=== PATIENT | male | born 1990 | race Two or more races ===

== ENCOUNTER 2019-07-22 22:11 | Inpatient (IN) ==
[2019-07-22 22:35] VITALS: BMI 32.4
[2019-07-22 23:32] LABS: HEMOGLOBIN 16.7 g/dL (13.5-18.0); MEAN CORPUSCULAR HEMOGLOBIN 29.7 pg (27.0-34.0); MONOCYTES # (AUTO) 0.4 x10^3/uL (0.3-0.8); WHITE BLOOD COUNT 6.6 X10^3/uL (3.6-10.0)
[2019-07-22] MEDS ORDERED: ROCEPHIN VIAL 1 GRAM 1 G in NS 100 ML IV + SPIKE MINIBAG* 100 ML IV ONE (23:36)
[2019-07-22] MEDS ORDERED: VIBRAMYCIN 100 MG in D5W 250 ML IV 250 ML IV ONE (23:36)
[2019-07-22 23:39] LABS: ALANINE AMINOTRANSFERASE 64 Units/L (12-78); ALKALINE PHOSPHATASE 79 Units/L (46-116); ASPARTATE AMINO TRANSFERASE 38 Units/L (15-37); BASOPHILS % (AUTO) 0.4 % (0.2-1.0); BLOOD UREA NITROGEN 15 mg/dL (7-18); CALCIUM 8.9 mg/dL (8.5-10.1); CARBON DIOXIDE 26.2 mmol/L (21-32); CHLORIDE 100 mmol/L (98-107); CREATININE 1.35 mg/dL (0.70-1.30); HEMATOCRIT 47.8 % (42.0-54.0); LYMPHOCYTES # (AUTO) 0.4 X10^3/uL (1.3-2.9); LYMPHOCYTES % (AUTO) 5.4 % (21.0-51.0); MEAN CORPUSCULAR VOLUME 84.9 fL (80.0-100.0); MEAN PLATELET VOLUME 10.3 fL (7.4-11.0); MONOCYTES % (AUTO) 6.1 % (0.0-13.0); NEUTROPHILS # (AUTO) 5.8 x10^3/uL (2.2-4.8); NEUTROPHILS % (AUTO) 88.1 % (42.0-75.0); PLATELET COUNT 163 X10^3/uL (150.0-450.0); RED BLOOD COUNT 5.63 X10^6/uL (4.7-6.0); RED CELL DISTRIBUTION WIDTH 13.9 % (11.6-16.5); SODIUM 139 mmol/L (136-145); TOTAL PROTEIN 8.9 g/dL (6.4-8.2); eGFR NON BLACK RACES > 60 (>60)
[2019-07-22] MEDS ORDERED: NS 1000 ML 1,000 ML ONE (23:45)
--- NOTE | 2019-07-22 23:53 | DR.ABDMALE ---
HPI Time seen Time Seen by Provider: 07/22/19 22:47 PCP Primary Care Physician: NFD Complaint Chief Complaint Doctors Comments: A 28 y/o male presents with c/o fever, muscle aches, epigastric pain for the preceding 5 days. He had COVID testing done 2 days ago. He also has SOB but no cough. He has nausea also. 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 UPON ASKING PT HE STATES HE IS SOB. SATS NOTED BETWEEN 88-89, PT TAKEN TO ROOM MD INFORMED AND PLACED ON NC Self Treatment fo Chief Complaint: TYLENOL 4 PM COVID-19 Coronavirus risk:travel/contact w/high risk person: No Has patient experienced Coronavirus symptoms: Yes Coronavirus symptoms experienced: Fever and Shortness of Breath Reviewed Nurses Notes Review: Yes Mode of arrival Mode of Arrival: Ambulatory Timing Onset of Chief Complaint: 07/22/19 Came on: Gradually Duration Duration: Intermittent How lon Location Location: Epigastric Severity Severity: Mild and Moderate Quality Quality: Aching Context History of: None Modifying factors Worsening Factors: Nothing Improving Factors: Nothing Associated signs and symptoms Associated Signs and Symptoms: Nausea PMH PMH Past Medical History: No Past Surgical History: No Surgical History: No History Family History History of Family Medical Conditions: No Social History Does patient currently use any type of tobacco product: No Have you used tobacco products in the last 12 months: No Type of Tobacco Use: None Does any household member use tobacco: No Alcohol Use: None Do you use any recreational Drugs:: No Lives With: Family Lives Where: Home Infectious screening In the last 2 months have you had wt loss of >10#?: NO Have you had fever, night sweats or hemotysis?: No Have you traveled outside the country in the last 6 months?: No Isolation: Standard ROS Review of Systems Constitutional: Fever Eyes: No Symptoms Reported ENTM: No Symptoms Reported Respiratoy: Short of Breath Cardiovascular: No Symptoms Reported Gastrointestinal/Abdominal: Abdominal Pain (epigastric) and Nausea Genitourinary: No Symptoms Reported Neurological: No Symptoms Reported Musculoskeletal: Other (Muscle aches) Integumentary: No Symptoms Reported Hematologic/Lymphatic: No Symptoms Reported Endocrine: No Symptoms Reported Psychiatric: No Symptoms Reported All Other Systems: Reviewed and Negative PE Vital Signs Vital Signs: Temp Pulse Pulse Resp BP BP Pulse Ox 07/22/19 23:00 98 H 123/63 90 L 07/22/19 22:29 97.9 F 98 H 18 107/55 88 L 07/20/19 15:43 121/79 General Limitations: No Limitations General Appearance: Alert and In No Apparent Distress Head Head Exam: Normal Inspection, Atraumatic and Normocephalic Eyes Eye exam: Normal Appearance and EOMI ENT ENT Exam: Normal Exam, Normal Oropharynx, Normal External Ear Exam and Mucous Membranes Moist Neck Neck Exam: Normal Inspection, Full ROM and Trachea Midline Chest Chest Inspection: Normal Inspection and Symmetric Chest Wall Rise Respiratory Respiratory Exam: Normal Lung Sounds Bilat Cardiovascular Cardiovascular Exam: Regular Rate, Normal Rhythm, Normal Heart Sounds, +S1 and +S2 Abdominal Exam Abdominal Exam: Normal Inspection, Normal Bowel Sounds and Soft Rectal Rectal Exam: Deferred Back Back Exam: Normal Inspection and Full ROM Extremeties Extremities Exam: Normal Inspection and Full ROM Exam: Male: Deferred Neurologic Neurological Exam: Alert and Oriented X3 Psychiatric Psychiatric Exam: Normal Affect and Normal Mood Skin Skin Exam: Dry and Normal Color COURSE Reevaluation 1st: Improved Education/Counseling Education/Counseling: Patient, Education and Counseling Educated On: Treatment, Diagnosis, Prognosis and Needs for Follow Up ROR Labs Reviewed Laboratory Results Reviewed?: Yes Result Diagrams: 07/22/19 23:19 07/22/19 23:19 Laboratory: WBC 6.6 X10^3/uL (3.6-10.0) 07/22/19 23:19 RBC 5.63 X10^6/uL (4.7-6.0) 07/22/19 23:19 Hgb 16.7 g/dL (13.5-18.0) 07/22/19 23:19 Hct 47.8 % (42.0-54.0) 07/22/19 23:19 MCV 84.9 fL (80.0-100.0) 07/22/19 23:19 MCH 29.7 pg (27.0-34.0) 07/22/19 23:19 MCHC 35.0 g/dL (33.0-35.0) 07/22/19 23:19 RDW 13.9 % (11.6-16.5) 07/22/19 23:19 Plt Count 163 X10^3/uL (150.0-450.0) 07/22/19 23:19 MPV 10.3 fL (7.4-11.0) 07/22/19 23:19 Neut % (Auto) 88.1 % (42.0-75.0) H 07/22/19 23:19 Lymph % (Auto) 5.4 % (21.0-51.0) L 07/22/19 23:19 [place] % (Auto) 6.1 % (0.0-13.0) 07/22/19 23:19 Eos % (Auto) 0.0 % (0.9-2.9) L 07/22/19 23:19 Baso % (Auto) 0.4 % (0.2-1.0) 07/22/19 23:19 Neut # (Auto) 5.8 x10^3/uL (2.2-4.8) H 07/22/19 23:19 Lymph # (Auto) 0.4 X10^3/uL (1.3-2.9) L 07/22/19 23:19 [place] # (Auto) 0.4 x10^3/uL (0.3-0.8) 07/22/19 23:19 Eos # (Auto) 0.0 x10^3/uL (0.0-0.2) 07/22/19 23:19 Baso # (Auto) 0.0 X10^3/uL (0.0-0.1) 07/22/19 23:19 Absolute Nucleated RBC 0.0 /100WBC 07/22/19 23:19 Sodium 139 mmol/L (136-145) 07/22/19 23:19 Corrected Sodium TNP 07/22/19 23:19 Potassium 3.5 mmol/L (3.5-5.1) 07/22/19 23:19 Chloride 100 mmol/L (98-107) 07/22/19 23:19 Carbon Dioxide 26.2 mmol/L (21-32) 07/22/19 23:19 BUN 15 mg/dL (7-18) 07/22/19 23:19 Creatinine 1.35 mg/dL (0.70-1.30) H 07/22/19 23:19 Est GFR (MDRD) Af Amer > 60 (>60) 07/22/19 23:19 Est GFR (MDRD) Non-Af > 60 (>60) 07/22/19 23:19 Glucose 97 mg/dL (65-99) 07/22/19 23:19 Calcium 8.9 mg/dL (8.5-10.1) 07/22/19 23:19 Corrected Calcium TNP 07/22/19 23:19 Total Bilirubin 0.70 mg/dL (0.2-1.0) 07/22/19 23:19 AST 38 Units/L (15-37) H 07/22/19 23:19 ALT 64 Units/L (12-78) 07/22/19 23:19 Alkaline Phosphatase 79 Units/L (46-116) 07/22/19 23:19 Total Protein 8.9 g/dL (6.4-8.2) H 07/22/19 23:19 Albumin 4.0 g/dL (3.4-5.0) 07/22/19 23:19 Globulin 4.9 g/dL (2.5-4.5) H 07/22/19 23:19 Albumin/Globulin Ratio 0.8 Ratio (1.1-2.1) L 07/22/19 23:19 XRAY XRAY Interpreted by: Self X-ray Results: CXR: RLL infiltrates, no cardiomegaly. Opioid Opioid Risk Tool Age (Andrzej box if 16-45): Yes History of Preadolescent Sexual Abuse: No Total: 1 Total Score Risk Category: Low Risk Copyright: [facility] predicting aberrant behaviors Diagnosis Discharge Problem: Acute interstitial pneumonia ADDITIONAL NOTES Additional Notes Additional Notes: STUDY: CHEST, 1 VIEW COMPARISON: None HISTORY: sob, fever, possible covid-19 FINDINGS: Multifocal alveolar airspace disease is seen throughout the right and left lung which also demonstrates increased interstitial lung markings in the bilateral mid and lower lung zones in a symmetric distribution from the ekaterina to the subpleural surface. This is worrisome for infectious process which may include bacterial lobar pneumonia with possible superimposed viral pattern interstitial pneumonia. Heart size is normal. Mediastinum is unremarkable. Trachea is midline. No pleural effusion or pneumothorax is seen. IMPRESSION: 1. Findings suggest multifocal lobar pneumonia with findings that may represent superimposed viral pattern interstitial pneumonia. Correlation with laboratory viral testing may be helpful and obtained if clinically indicated. Electronically signed by: Ezra Ieyr (July 22, 2019 23:58:26)
[2019-07-22] MEDS ORDERED: NS 100 ML IV + SPIKE MINIBAG* 200 ML IV ONE (23:57)
[2019-07-22] MEDS ORDERED: ROCEPHIN VIAL 1 GRAM ONE (23:58)
--- NOTE | 2019-07-23 | RAD ---
STUDY: CHEST, 1 VIEWCOMPARISON: NoneHISTORY: sob, fever, possible covid-19FINDINGS:Multifocal alveolar airspace disease is seen throughout the right and left lung which also demonstrates increased interstitial lung markings in the bilateral mid and lower lung zones in a symmetric distribution from the ekaterina to the subpleural surface. This is worrisome for infectious process which may include bacterial lobar pneumonia with possible superimposed viral pattern interstitial pneumonia.Heart size is normal. Mediastinum is unremarkable. Trachea is midline. No pleural effusion or pneumothorax is seen.IMPRESSION:1. Findings suggest multifocal lobar pneumonia with findings that may represent superimposed viral pattern interstitial pneumonia. Correlation with laboratory viral testing may be helpful and obtained if clinically indicated.Electronically signed by: Ezra Iyer (July 22, 2019 23:58:26)
[2019-07-23] MEDS ORDERED: TYLENOL 325 MG TAB PO PRN (00:56)
[2019-07-23] MEDS ORDERED: ASCORBIC ACID INJ MULTI-DOSE VIAL IM SCH (01:20)
[2019-07-23 01:23] LABS: ABG BASE EXCESS -2.7 mmol/L (-2.0-2.0); ABG HCO3 19.7 mmol/L (22-26)
[2019-07-23] MEDS: NS 1000 ML 1,000 ML IV SCH (02:22)
[2019-07-23 05:28] LABS: BASOPHILS % (AUTO) 0.2 % (0.2-1.0); HEMATOCRIT 42.7 % (42.0-54.0); LYMPHOCYTES # (AUTO) 0.8 X10^3/uL (1.3-2.9); LYMPHOCYTES % (AUTO) 13.2 % (21.0-51.0); MEAN CORPUSCULAR HEMOGLOBIN 29.3 pg (27.0-34.0); MEAN CORPUSCULAR HGB CONC 34.5 g/dL (33.0-35.0); MEAN CORPUSCULAR VOLUME 84.8 fL (80.0-100.0); MEAN PLATELET VOLUME 10.1 fL (7.4-11.0); MONOCYTES # (AUTO) 0.5 x10^3/uL (0.3-0.8); MONOCYTES % (AUTO) 7.9 % (0.0-13.0); NEUTROPHILS # (AUTO) 4.8 x10^3/uL (2.2-4.8); NEUTROPHILS % (AUTO) 78.7 % (42.0-75.0); PLATELET COUNT 158 X10^3/uL (150.0-450.0); RED BLOOD COUNT 5.03 X10^6/uL (4.7-6.0); RED CELL DISTRIBUTION WIDTH 14.1 % (11.6-16.5); WHITE BLOOD COUNT 6.1 X10^3/uL (3.6-10.0)
[2019-07-23 05:40] LABS: ALANINE AMINOTRANSFERASE 55 Units/L (12-78); ALBUMIN 3.3 g/dL (3.4-5.0); ALKALINE PHOSPHATASE 64 Units/L (46-116); ASPARTATE AMINO TRANSFERASE 37 Units/L (15-37); BLOOD UREA NITROGEN 14 mg/dL (7-18); CARBON DIOXIDE 24.4 mmol/L (21-32); CHLORIDE 103 mmol/L (98-107); COR CA(FOR HYPOALB) 8.6 mg/dL (8.5-10.1); CREATININE 1.14 mg/dL (0.70-1.30); SODIUM 139 mmol/L (136-145); TOTAL PROTEIN 7.5 g/dL (6.4-8.2); eGFR NON BLACK RACES > 60 (>60)
[2019-07-23 05:43] LABS: HEMOGLOBIN 14.7 g/dL (13.5-18.0)
[2019-07-23] MEDS: PLAQUENIL PO SCH ×3 (06:04→21:15)
[2019-07-23] MEDS ORDERED: CORTEF ONE (08:35)
[2019-07-23] MEDS: NS 100 ML IV 100 ML with ASCORBIC ACID INJ MULTI-DOSE VIAL 1,500 MG IV SCH ×6 (08:50→21:15)
[2019-07-23] MEDS: THIAMINE HCL INJ IM SCH ×2 (08:50→21:15)
[2019-07-23] MEDS: ZINC SULFATE PO SCH ×2 (08:50→21:15)
[2019-07-23] MEDS: CORTEF PO SCH ×4 (08:50→21:15)
[2019-07-23] MEDS ORDERED: TYLENOL 500 MG TAB EXTRA STRENGTH PO SCH (13:00)
[2019-07-23] MEDS: LOVENOX INJ 40 MG SYR SC SCH (13:05)
[2019-07-23] MEDS: VITAMIN D (1.25MG) PO SCH ×2 (16:43→17:30)
[2019-07-23] MEDS: TYLENOL 500 MG TAB EXTRA STRENGTH PO PRN (20:30)
[2019-07-24] MEDS ORDERED: ROBITUSSIN DM ONE (00:55)
[2019-07-24] MEDS: ROBITUSSIN DM PO PRN ×2 (01:01→14:07)
[2019-07-24] MEDS: TYLENOL 500 MG TAB EXTRA STRENGTH PO PRN ×2 (02:08→16:00)
[2019-07-24] MEDS: NS 100 ML IV 100 ML with ASCORBIC ACID INJ MULTI-DOSE VIAL 1,500 MG IV SCH ×8 (03:27→20:20)
[2019-07-24] MEDS ORDERED: MOTRIN TAB 800 MG PO ONE ×3 (03:31→17:17)
[2019-07-24 05:20] LABS: BASOPHILS # (AUTO) 0.1 X10^3/uL (0.0-0.1); BASOPHILS % (AUTO) 0.6 % (0.2-1.0); HEMATOCRIT 43.5 % (42.0-54.0); HEMOGLOBIN 15.1 g/dL (13.5-18.0); LYMPHOCYTES # (AUTO) 0.8 X10^3/uL (1.3-2.9); LYMPHOCYTES % (AUTO) 7.4 % (21.0-51.0); MEAN CORPUSCULAR HEMOGLOBIN 29.2 pg (27.0-34.0); MEAN CORPUSCULAR HGB CONC 34.8 g/dL (33.0-35.0); MEAN PLATELET VOLUME 9.9 fL (7.4-11.0); MONOCYTES # (AUTO) 0.5 x10^3/uL (0.3-0.8); MONOCYTES % (AUTO) 4.7 % (0.0-13.0); NEUTROPHILS # (AUTO) 9.3 x10^3/uL (2.2-4.8); NEUTROPHILS % (AUTO) 87.3 % (42.0-75.0); PLATELET COUNT 157 X10^3/uL (150.0-450.0); RED BLOOD COUNT 5.18 X10^6/uL (4.7-6.0); RED CELL DISTRIBUTION WIDTH 13.8 % (11.6-16.5); WHITE BLOOD COUNT 10.7 X10^3/uL (3.6-10.0)
[2019-07-24 05:38] LABS: ALANINE AMINOTRANSFERASE 47 Units/L (12-78); ALBUMIN 3.2 g/dL (3.4-5.0); ALKALINE PHOSPHATASE 64 Units/L (46-116); ASPARTATE AMINO TRANSFERASE 35 Units/L (15-37); BLOOD UREA NITROGEN 9 mg/dL (7-18); CALCIUM 8.3 mg/dL (8.5-10.1); CARBON DIOXIDE 28.2 mmol/L (21-32); CHLORIDE 103 mmol/L (98-107); COR CA(FOR HYPOALB) 8.9 mg/dL (8.5-10.1); CREATININE 1.01 mg/dL (0.70-1.30); SODIUM 139 mmol/L (136-145); TOTAL PROTEIN 7.5 g/dL (6.4-8.2); eGFR NON BLACK RACES > 60 (>60)
[2019-07-24] MEDS: PLAQUENIL PO SCH ×3 (06:12→21:40)
--- NOTE | 2019-07-24 06:23 | RAD ---
HISTORYFollow-up shortness of breath, COVID-19STUDYCHEST, 1 [id number]/13/2020FINDINGSThe heart is enlarged. No congestive heart failure is noted. The lungs are somewhat hypoinflated. Subtle left perihilar infiltrate is present subsegmental atelectasis is present in the right lung base and right perihilar region. No pleural effusions are identified.IMPRESSIONMild cardiomegaly without congestive heart failureHypo inflationLeft perihilar infiltrateSubsegmental atelectasis on the right as describedElectronically signed by: CATARINA MANCUSO (July 24, 2019 06:21:23)
[2019-07-24] MEDS: ZINC SULFATE PO SCH ×2 (08:24→20:20)
[2019-07-24] MEDS: CORTEF PO SCH ×4 (08:24→20:20)
[2019-07-24] MEDS: LOVENOX INJ 40 MG SYR SC SCH (08:25)
[2019-07-24] MEDS: THIAMINE HCL INJ IM SCH ×2 (08:26→20:20)
[2019-07-24] MEDS ORDERED: ZOFRAN INJ 4 MG VIAL ONE (13:58)
[2019-07-24] MEDS ORDERED: ZOFRAN INJ 4 MG VIAL IVP PRN (14:08)
[2019-07-24] MEDS: MOTRIN TAB 800 MG PO PRN (17:24)
[2019-07-25] MEDS: NS 100 ML IV 100 ML with ASCORBIC ACID INJ MULTI-DOSE VIAL 1,500 MG IV SCH ×8 (03:18→20:10)
[2019-07-25] MEDS: TYLENOL 500 MG TAB EXTRA STRENGTH PO PRN ×2 (03:19→20:10)
[2019-07-25] MEDS: ROBITUSSIN DM PO PRN ×3 (03:19→17:34)
[2019-07-25] MEDS: MOTRIN TAB 800 MG PO PRN ×2 (05:40→17:33)
[2019-07-25] MEDS: PLAQUENIL PO SCH ×3 (05:51→21:32)
[2019-07-25 06:09] LABS: BASOPHILS % (AUTO) 0.4 % (0.2-1.0); HEMATOCRIT 42.2 % (42.0-54.0); HEMOGLOBIN 14.5 g/dL (13.5-18.0); LYMPHOCYTES # (AUTO) 1.2 X10^3/uL (1.3-2.9); LYMPHOCYTES % (AUTO) 10.6 % (21.0-51.0); MEAN CORPUSCULAR HEMOGLOBIN 28.8 pg (27.0-34.0); MEAN CORPUSCULAR HGB CONC 34.4 g/dL (33.0-35.0); MEAN CORPUSCULAR VOLUME 83.8 fL (80.0-100.0); MEAN PLATELET VOLUME 10.5 fL (7.4-11.0); MONOCYTES # (AUTO) 0.5 x10^3/uL (0.3-0.8); MONOCYTES % (AUTO) 4.5 % (0.0-13.0); NEUTROPHILS # (AUTO) 9.5 x10^3/uL (2.2-4.8); NEUTROPHILS % (AUTO) 84.5 % (42.0-75.0); PLATELET COUNT 178 X10^3/uL (150.0-450.0); RED BLOOD COUNT 5.04 X10^6/uL (4.7-6.0); RED CELL DISTRIBUTION WIDTH 13.7 % (11.6-16.5); WHITE BLOOD COUNT 11.3 X10^3/uL (3.6-10.0)
[2019-07-25] MEDS: NS 1000 ML 1,000 ML IV SCH ×2 (06:23→07:10)
[2019-07-25 06:24] LABS: ALANINE AMINOTRANSFERASE 38 Units/L (12-78); ALBUMIN 2.8 g/dL (3.4-5.0); ALKALINE PHOSPHATASE 74 Units/L (46-116); ASPARTATE AMINO TRANSFERASE 31 Units/L (15-37); BLOOD UREA NITROGEN 10 mg/dL (7-18); CALCIUM 8.6 mg/dL (8.5-10.1); CARBON DIOXIDE 25.2 mmol/L (21-32); CHLORIDE 103 mmol/L (98-107); COR CA(FOR HYPOALB) 9.6 mg/dL (8.5-10.1); CREATININE 0.86 mg/dL (0.70-1.30); SODIUM 139 mmol/L (136-145); TOTAL PROTEIN 7.3 g/dL (6.4-8.2); eGFR NON BLACK RACES > 60 (>60)
--- NOTE | 2019-07-25 08:03 | RAD ---
HISTORYCough SOBSTUDYPortable AP [id number]/2020FINDINGSContinued normal heart size and configuration. Slight improvement in pulmonary volumes. Persistent areas of bibasal infiltrates/atelectasis. No new consolidation, edema or pneumothorax seen.IMPRESSIONMild bibasal areas of infiltrate or subsegmental atelectasis. Consider ing technical differences there is little change since prior.Electronically signed by: BRYN BOO (July 25, 2019 08:02:08)
[2019-07-25] MEDS: VITAMIN A PO SCH (09:10)
[2019-07-25] MEDS: VITAMIN D3 25 mcg (1,000 UNITS) PO SCH (09:10)
[2019-07-25] MEDS: LOVENOX INJ 40 MG SYR SC SCH (09:10)
[2019-07-25] MEDS: ZINC SULFATE PO SCH ×2 (09:10→20:10)
[2019-07-25] MEDS: THIAMINE HCL INJ IM SCH ×2 (10:25→20:10)
--- NOTE | 2019-07-25 10:45 | PCM.PROG ---
Progress Note Progress Note for Day of Date of Exam: 07/25/19 Subjective Subjective: Patient seen at bedside, [place] counsel line used for communication. He reports chest tightness and labored breathing with exertion. He was put on RA this morning, sats remained at 91% and he reported some shortness of breath. His RR did increase to 40s. He reports dry cough. Patient placed back on 2L, breathing looks better and sats. 96%. Denies fever or chills, reports poor appetite, Denies N/V/D or abdominal pain. Tmax 101.2 last night, currently afebrile. He has been getting Tylenol and Ibuprofen. CXR: bibasilar infiltrates/atelectasis, similar to prior Labs: WBC 11.3, K: 3.4 M.0 Plan: place back on 2L, monitor resp status, will evaluate on RA again this evening. Continue current treatment with Plaquenil, Vit C, thiamine and Zinc. Will DC hydrocortisone. Add albuterol inhaler QID, incentive spirometer. Monitor AM labs. Will get a baseline EKG due to being on plaquenil. Past Medical Family Social History Past Med/Fam/Surg Hx: No changes since H&P Allergies: Allergies No Known Drug Allergies Allergy (Verified 07/20/19 13:52) Review of Systems ROS: No change since H&P Vital Signs and I&O's Vital Signs: Temperature 98.9 F Pulse Rate [Left] 79 Pulse Rate 98 Respiratory Rate 39 Blood Pressure [Left Arm] 128/70 Blood Pressure 107/55 O2 Sat by Pulse Oximetry 94 Intake and Output: Intake & Output 07/22/19 07/23/19 07/24/19 07/25/19 23:59 23:59 23:59 23:59 Intake Total 1201 / 1201 1968 / 1968 479 / 479 Output Total 2099 / 2099 1600 / 1600 325 / 325 Balance -899 / -899 369 / 369 154 / 154 Physical Exam Oriented: Normal Ear: Normal Nose: Normal Respiratory: Generalized and Diminished Cardiovascular: Normal Auscultation: Bowel Sounds: Normal Tenderness: Normal Skin: Normal Musculoskeletal: Normal Psychiatric: Normal Mood Description: Calm Speech Pattern: Clear and Appropriate Laboratory and Diagnostics Result Diagrams: 07/25/19 05:20 07/25/19 05: Labs: 07/22/19 23:52 Blood Blood Culture - Preliminary 07/22/19 23:19 Blood Blood Culture - Preliminary Laboratory WBC 11.3 X10^3/uL (3.6-10.0) H 07/25/19 05:20 RBC 5.04 X10^6/uL (4.7-6.0) 07/25/19 05:20 Hgb 14.5 g/dL (13.5-18.0) 07/25/19 05:20 Hct 42.2 % (42.0-54.0) 07/25/19 05:20 MCV 83.8 fL (80.0-100.0) 07/25/19 05:20 MCH 28.8 pg (27.0-34.0) 07/25/19 05:20 MCHC 34.4 g/dL (33.0-35.0) 07/25/19 05:20 RDW 13.7 % (11.6-16.5) 07/25/19 05:20 Plt Count 178 X10^3/uL (150.0-450.0) 07/25/19 05:20 MPV 10.5 fL (7.4-11.0) 07/25/19 05:20 Neut % (Auto) 84.5 % (42.0-75.0) H 07/25/19 05:20 Lymph % (Auto) 10.6 % (21.0-51.0) L 07/25/19 05:20 [place] % (Auto) 4.5 % (0.0-13.0) 07/25/19 05:20 Eos % (Auto) 0.0 % (0.9-2.9) L 07/25/19 05:20 Baso % (Auto) 0.4 % (0.2-1.0) 07/25/19 05:20 Neut # (Auto) 9.5 x10^3/uL (2.2-4.8) H 07/25/19 05:20 Lymph # (Auto) 1.2 X10^3/uL (1.3-2.9) L 07/25/19 05:20 [place] # (Auto) 0.5 x10^3/uL (0.3-0.8) 07/25/19 05:20 Eos # (Auto) 0.0 x10^3/uL (0.0-0.2) 07/25/19 05:20 Baso # (Auto) 0.0 X10^3/uL (0.0-0.1) 07/25/19 05:20 Absolute Nucleated RBC 0.0 /100WBC 07/25/19 05:20 Sample Site [facility] 07/23/19 01:18 ABG pH 7.470 (7.35-7.45) H 07/23/19 01:18 ABG pCO2 27.0 mmHg (35.0-45.0) L 07/23/19 01:18 ABG pO2 99.0 mmHg (80.0-100.0) 07/23/19 01:18 ABG HCO3 19.7 mmol/L (22-26) L 07/23/19 01:18 ABG O2 Saturation 98.0 % (90-100) 07/23/19 01:18 ABG Base Excess -2.7 mmol/L (-2.0-2.0) L 07/23/19 01:18 Kendall Test Na 07/23/19 01:18 A-a Gradient 17.0 mmHg 07/23/19 01:18 FiO2 21.0 07/23/19 01:18 Blood Gas Comments [facility] 07/23/19 01:18 Sodium 139 mmol/L (136-145) 07/25/19 05:20 Corrected Sodium TNP 07/25/19 05:20 Potassium 3.4 mmol/L (3.5-5.1) L 07/25/19 05:20 Chloride 103 mmol/L (98-107) 07/25/19 05:20 Carbon Dioxide 25.2 mmol/L (21-32) 07/25/19 05:20 BUN 10 mg/dL (7-18) 07/25/19 05:20 Creatinine 0.86 mg/dL (0.70-1.30) 07/25/19 05:20 Est GFR (MDRD) Af Amer > 60 (>60) 07/25/19 05:20 Est GFR (MDRD) Non-Af > 60 (>60) 07/25/19 05:20 Glucose 100 mg/dL (65-99) H 07/25/19 05:20 Calcium 8.6 mg/dL (8.5-10.1) 07/25/19 05:20 Corrected Calcium 9.6 mg/dL (8.5-10.1) 07/25/19 05:20 Magnesium 2.0 mg/dL (1.7-2.9) 07/25/19 05:20 Total Bilirubin 0.60 mg/dL (0.2-1.0) 07/25/19 05:20 AST 31 Units/L (15-37) 07/25/19 05:20 ALT 38 Units/L (12-78) 07/25/19 05:20 Alkaline Phosphatase 74 Units/L (46-116) 07/25/19 05:20 Total Protein 7.3 g/dL (6.4-8.2) 07/25/19 05:20 Albumin 2.8 g/dL (3.4-5.0) L 07/25/19 05:20 Globulin 4.5 g/dL (2.5-4.5) 07/25/19 05:20 Albumin/Globulin Ratio 0.6 Ratio (1.1-2.1) L 07/25/19 05:20 Plan (1) Acute respiratory failure due to COVID-19: Status: Acute (2) COVID-19 virus infection: Status: Acute (3) Acute interstitial pneumonia: Status: Acute (4) Hypokalemia: Status: Acute
[2019-07-25] MEDS: K-DUR TAB 20 MEQ PO SCH (11:45)
[2019-07-25] MEDS: VENTOLIN or PROAIR HFA IN SCH ×4 (12:00→21:09)
[2019-07-26] MEDS: NS 1000 ML 1,000 ML IV SCH ×2 (00:46→20:45)
[2019-07-26] MEDS: NS 100 ML IV 100 ML with ASCORBIC ACID INJ MULTI-DOSE VIAL 1,500 MG IV SCH ×8 (03:17→20:44)
[2019-07-26 04:51] LABS: BASOPHILS % (AUTO) 0.2 % (0.2-1.0); EOSINOPHILS % (AUTO) 0.3 % (0.9-2.9); HEMATOCRIT 43.8 % (42.0-54.0); HEMOGLOBIN 15.1 g/dL (13.5-18.0); LYMPHOCYTES # (AUTO) 1.2 X10^3/uL (1.3-2.9); LYMPHOCYTES % (AUTO) 14.8 % (21.0-51.0); MEAN CORPUSCULAR HEMOGLOBIN 29.1 pg (27.0-34.0); MEAN CORPUSCULAR HGB CONC 34.5 g/dL (33.0-35.0); MEAN CORPUSCULAR VOLUME 84.3 fL (80.0-100.0); MEAN PLATELET VOLUME 9.5 fL (7.4-11.0); MONOCYTES # (AUTO) 0.6 x10^3/uL (0.3-0.8); MONOCYTES % (AUTO) 8.2 % (0.0-13.0); NEUTROPHILS % (AUTO) 76.5 % (42.0-75.0); PLATELET COUNT 197 X10^3/uL (150.0-450.0); RED BLOOD COUNT 5.19 X10^6/uL (4.7-6.0); WHITE BLOOD COUNT 7.8 X10^3/uL (3.6-10.0)
[2019-07-26 04:59] LABS: BLOOD UREA NITROGEN 9 mg/dL (7-18); CALCIUM 8.6 mg/dL (8.5-10.1); CARBON DIOXIDE 28.1 mmol/L (21-32); CHLORIDE 104 mmol/L (98-107); CREATININE 0.89 mg/dL (0.70-1.30); SODIUM 141 mmol/L (136-145); eGFR NON BLACK RACES > 60 (>60)
[2019-07-26] MEDS: PLAQUENIL PO SCH ×3 (06:12→21:00)
[2019-07-26] MEDS: K-DUR TAB 20 MEQ PO SCH (08:25)
[2019-07-26] MEDS: VITAMIN A PO SCH (08:26)
[2019-07-26] MEDS: VITAMIN D3 25 mcg (1,000 UNITS) PO SCH (08:26)
[2019-07-26] MEDS: TYLENOL 500 MG TAB EXTRA STRENGTH PO PRN (08:27)
[2019-07-26] MEDS: ZINC SULFATE PO SCH ×2 (08:27→20:44)
[2019-07-26] MEDS: ROBITUSSIN DM PO PRN (08:28)
[2019-07-26] MEDS: LOVENOX INJ 40 MG SYR SC SCH (08:28)
[2019-07-26] MEDS: THIAMINE HCL INJ IM SCH ×2 (08:29→20:44)
[2019-07-26] MEDS: VENTOLIN or PROAIR HFA IN SCH ×4 (08:30→21:45)
[2019-07-26 09:59] LABS: ABG ALLEN TEST POS; ABG BASE EXCESS 2.5 mmol/L (-2.0-2.0); ABG HCO3 26.3 mmol/L (22-26)
--- NOTE | 2019-07-26 10:38 | PCM.PROG ---
Progress Note Progress Note for Day of Date of Exam: 07/26/19 Subjective Subjective: Patient seen at bedside, bottom cager used for communication. His sats were 91% on RA this morning and seemed to be uncomfortable on 4L. He was placed on heated hi-flow and seems to be more comfortable now. He is currently sitting on the recliner and reports breathing feels better now. He states he feels dizzy when he gets up and has trouble breathing. He also states his cough gets worse with deep breathing. He has been using the incentive spirometer and albuterol inhaler. He did have some nausea yesterday, no vomiting or diarrhea. He reports decreased appetite but would like to have more fruits as he has been eating fruits. Plan: will repeat ABG now, continue heated hi-flow, ambulate as tolerated in the room, add more fruits to diet, educated patient on taking deep breaths, using IS, flutter valve and albuterol inhaler. Patient verbalized understanding. Will give one dose of solumedrol. Past Medical Family Social History Past Med/Fam/Surg Hx: No changes since H&P Allergies: Allergies No Known Drug Allergies Allergy (Verified 07/20/19 13:52) Review of Systems ROS: No change since H&P Vital Signs and I&O's Vital Signs: Temperature 100.1 F Pulse Rate [Left] 86 Pulse Rate 91 Respiratory Rate 50 Blood Pressure [Left Arm] 122/56 Blood Pressure 116/64 O2 Sat by Pulse Oximetry 93 Intake and Output: Intake & Output 07/23/19 07/24/19 07/25/19 07/26/19 23:59 23:59 23:59 23:59 Intake Total 1201 / 1201 1968 / 1968 3226 / 3226 393 / 393 Output Total 2100 / 2099 1600 / 1600 1974 / 1974 350 / 350 Balance -899 / -899 369 / 369 1251 / 1251 43 / 43 Physical Exam Oriented: Normal Ear: Normal Nose: Normal Respiratory: Generalized and Diminished Cardiovascular: Normal Auscultation: Bowel Sounds: Normal Tenderness: Normal Skin: Normal Musculoskeletal: Normal Psychiatric: Normal Mood Description: Calm Speech Pattern: Clear and Appropriate Laboratory and Diagnostics Result Diagrams: 07/26/19 04:30 07/26/19 04:30 Labs: 07/22/19 23:52 Blood Blood Culture - Preliminary 07/22/19 23:19 Blood Blood Culture - Preliminary Laboratory WBC 7.8 X10^3/uL (3.6-10.0) 07/26/19 04:30 RBC 5.19 X10^6/uL (4.7-6.0) 07/26/19 04:30 Hgb 15.1 g/dL (13.5-18.0) 07/26/19 04:30 Hct 43.8 % (42.0-54.0) 07/26/19 04:30 MCV 84.3 fL (80.0-100.0) 07/26/19 04:30 MCH 29.1 pg (27.0-34.0) 07/26/19 04:30 MCHC 34.5 g/dL (33.0-35.0) 07/26/19 04:30 RDW 14.0 % (11.6-16.5) 07/26/19 04:30 Plt Count 197 X10^3/uL (150.0-450.0) 07/26/19 04:30 MPV 9.5 fL (7.4-11.0) 07/26/19 04:30 Neut % (Auto) 76.5 % (42.0-75.0) H 07/26/19 04:30 Lymph % (Auto) 14.8 % (21.0-51.0) L 07/26/19 04:30 [place] % (Auto) 8.2 % (0.0-13.0) 07/26/19 04:30 Eos % (Auto) 0.3 % (0.9-2.9) L 07/26/19 04:30 Baso % (Auto) 0.2 % (0.2-1.0) 07/26/19 04:30 Neut # (Auto) 6.0 x10^3/uL (2.2-4.8) H 07/26/19 04:30 Lymph # (Auto) 1.2 X10^3/uL (1.3-2.9) L 07/26/19 04:30 [place] # (Auto) 0.6 x10^3/uL (0.3-0.8) 07/26/19 04:30 Eos # (Auto) 0.0 x10^3/uL (0.0-0.2) 07/26/19 04:30 Baso # (Auto) 0.0 X10^3/uL (0.0-0.1) 07/26/19 04:30 Absolute Nucleated RBC 0.0 /100WBC 07/26/19 04:30 Sample Site Rr 07/26/19 09:50 ABG pH 7.460 (7.35-7.45) H 07/26/19 09:50 ABG pCO2 37.0 mmHg (35.0-45.0) 07/26/19 09:50 ABG pO2 73.0 mmHg (80.0-100.0) L 07/26/19 09:50 ABG HCO3 26.3 mmol/L (22-26) H 07/26/19 09:50 ABG O2 Saturation 95.0 % (90-100) 07/26/19 09:50 ABG Base Excess 2.5 mmol/L (-2.0-2.0) H 07/26/19 09:50 Kendall Test Pos 07/26/19 09:50 A-a Gradient 173.0 mmHg 07/26/19 09:50 FiO2 41.0 07/26/19 09:50 Blood Gas Comments Pt [email or web address] 07/26/19 09:50 Sodium 141 mmol/L (136-145) 07/26/19 04:30 Corrected Sodium TNP 07/26/19 04:30 Potassium 3.7 mmol/L (3.5-5.1) 07/26/19 04:30 Chloride 104 mmol/L (98-107) 07/26/19 04:30 Carbon Dioxide 28.1 mmol/L (21-32) 07/26/19 04:30 BUN 9 mg/dL (7-18) 07/26/19 04:30 Creatinine 0.89 mg/dL (0.70-1.30) 07/26/19 04:30 Est GFR (MDRD) Af Amer > 60 (>60) 07/26/19 04:30 Est GFR (MDRD) Non-Af > 60 (>60) 07/26/19 04:30 Glucose 95 mg/dL (65-99) 07/26/19 04:30 Calcium 8.6 mg/dL (8.5-10.1) 07/26/19 04:30 Corrected Calcium 9.6 mg/dL (8.5-10.1) 07/25/19 05:20 Magnesium 2.0 mg/dL (1.7-2.9) 07/25/19 05:20 Total Bilirubin 0.60 mg/dL (0.2-1.0) 07/25/19 05:20 AST 31 Units/L (15-37) 07/25/19 05:20 ALT 38 Units/L (12-78) 07/25/19 05:20 Alkaline Phosphatase 74 Units/L (46-116) 07/25/19 05:20 Total Protein 7.3 g/dL (6.4-8.2) 07/25/19 05:20 Albumin 2.8 g/dL (3.4-5.0) L 07/25/19 05:20 Globulin 4.5 g/dL (2.5-4.5) 07/25/19 05:20 Albumin/Globulin Ratio 0.6 Ratio (1.1-2.1) L 07/25/19 05:20 Plan (1) Acute respiratory failure due to COVID-19: Status: Acute (2) COVID-19 virus infection: Status: Acute (3) Acute interstitial pneumonia: Status: Acute (4) Hypokalemia: Status: Acute
[2019-07-26] MEDS ORDERED: SOLU-Medrol 125 MG VIAL IVP ONE (10:40)
--- NOTE | 2019-07-26 14:10 | RAD ---
HISTORYCovid positiveSTUDYCHEST, 1 VIEWCOMPARISONMay 2019FINDINGSThe patient is rotated. The cardiac silhouette is unremarkable. Patchy airspace opacities are again demonstrated bilaterally with no significant interval improvement since prior exam.IMPRESSIONPersistent bilateral airspace disease as noted above.Electronically signed by: LEW BLAKE (July 26, 2019 14:10:05)
[2019-07-27] MEDS: NS 1000 ML 1,000 ML IV SCH (02:50)
[2019-07-27] MEDS: NS 100 ML IV 100 ML with ASCORBIC ACID INJ MULTI-DOSE VIAL 1,500 MG IV SCH ×4 (02:51→08:21)
[2019-07-27 06:03] LABS: BLOOD UREA NITROGEN 12 mg/dL (7-18); CALCIUM 9.1 mg/dL (8.5-10.1); CARBON DIOXIDE 27.9 mmol/L (21-32); CHLORIDE 104 mmol/L (98-107); COR NA(FOR HYPERGLY) 142 mmol/L (136-145); CREATININE 0.83 mg/dL (0.70-1.30); SODIUM 141 mmol/L (136-145); eGFR NON BLACK RACES > 60 (>60)
[2019-07-27 06:06] LABS: BASOPHILS % (AUTO) 0.1 % (0.2-1.0); HEMATOCRIT 43.3 % (42.0-54.0); HEMOGLOBIN 15.2 g/dL (13.5-18.0); LYMPHOCYTES # (AUTO) 0.9 X10^3/uL (1.3-2.9); LYMPHOCYTES % (AUTO) 9.9 % (21.0-51.0); MEAN CORPUSCULAR HEMOGLOBIN 29.6 pg (27.0-34.0); MEAN CORPUSCULAR VOLUME 84.6 fL (80.0-100.0); MEAN PLATELET VOLUME 9.6 fL (7.4-11.0); MONOCYTES # (AUTO) 0.8 x10^3/uL (0.3-0.8); MONOCYTES % (AUTO) 9.1 % (0.0-13.0); NEUTROPHILS % (AUTO) 80.9 % (42.0-75.0); PLATELET COUNT 284 X10^3/uL (150.0-450.0); RED BLOOD COUNT 5.12 X10^6/uL (4.7-6.0); WHITE BLOOD COUNT 8.6 X10^3/uL (3.6-10.0)
[2019-07-27] MEDS: PLAQUENIL PO SCH ×2 (06:31→14:05)
[2019-07-27 06:47] LABS: ABG BASE EXCESS 3.1 mmol/L (-2.0-2.0)
[2019-07-27 06:48] LABS: ABG ALLEN TEST POS
[2019-07-27] MEDS: MOTRIN TAB 800 MG PO PRN (07:04)
--- NOTE | 2019-07-27 07:27 | RAD ---
HISTORYShortness of breath, follow-up COVID-19STUDYCHEST, 1 [id number]/2020FINDINGSHeart is upper limits normal in size. The lungs are hypoinflated. Bilateral patchy alveolar infiltrate are unchanged. No pleural effusions are identified. Bony thorax is unremarkable.IMPRESSIONNo change hypo inflation with bilateral patchy alveolar infiltratesElectronically signed by: CATARINA MANCUSO (July 27, 2019 07:25:38)
[2019-07-27] MEDS: K-DUR TAB 20 MEQ PO SCH (08:21)
[2019-07-27] MEDS: ZINC SULFATE PO SCH (08:21)
[2019-07-27] MEDS: LOVENOX INJ 40 MG SYR SC SCH (08:21)
[2019-07-27] MEDS: VITAMIN A PO SCH (08:22)
[2019-07-27] MEDS: VITAMIN D3 25 mcg (1,000 UNITS) PO SCH (08:22)
[2019-07-27] MEDS: VENTOLIN or PROAIR HFA IN SCH ×2 (09:20→12:05)
[2019-07-27 15:22] VITALS: BP 130/80
== END 2019-07-27 15:50 | disposition home or self-care (01) | DRG 177 ==
LOC: ER 22:22 → ICU 07-23 01:20
PROVIDERS: ADMIT Obstetrics & Gynecology Obstetrics; ATTEND Obstetrics & Gynecology Obstetrics
DX: U07.1 COVID-19; E87.6 Hypokalemia; R94.31 Abnormal electrocardiogram [ECG] [EKG]; R06.02 Shortness of breath; J96.00 Acute respiratory failure, unspecified whether with hypoxia or hypercapnia; J84.9 Interstitial pulmonary disease, unspecified
CPT/HCPCS: 36415; 36600; 71010; 71045; 80048; 80053; 82803; 83735; 85025; 87040; 93005; 94669; 96365; 96367; 96374; 99284; A4222; J0696; J1650; J2405; J2930; J3411; J3490; J7030; J7050; J7060